=== PATIENT | female | born 1960 | race Caucasian/White ===

== ENCOUNTER 2025-03-28 06:00 | Day surgery (SDC) | payer BC, MEDICARE ==
[2025-03-27 11:00] VITALS: BMI 27.3
[2025-03-28] MEDS ORDERED: Ropivacaine 0.5% HCl/PF (150 MG/30 ML VIAL) ONE (06:58)
[2025-03-28] MEDS ORDERED: Lidocaine 1% (PF) 30 ML VIAL ONE (06:58)
[2025-03-28] MEDS ORDERED: Lidocaine 1% PF 5 ML VIAL ONE (07:11)
[2025-03-28] MEDS ORDERED: PROPOFOL 20 ML ONE (07:11)
[2025-03-28] MEDS ORDERED: CEFAZOLIN 2 GM VIAL ONE (07:17)
[2025-03-28] MEDS ORDERED: HYDROcodone/Acetaminophen 5/325 mg Tablet PO PRN ×2 (08:15)
[2025-03-28] MEDS ORDERED: Ondansetron PF 4 MG/2 ML Vial IVP PRN (08:15)
[2025-03-28] MEDS ORDERED: Ropivacaine 0.2% 550 ML 550 ML NERVE BLCK SCH (08:15)
[2025-03-28] MEDS ORDERED: Ondansetron PF 4 MG/2 ML Vial ONE (08:17)
[2025-03-28] MEDS ORDERED: fentaNYL PF 100 MCG/2 ML SYRINGE ONE (08:57)
== END 2025-03-28 11:54 | disposition home or self-care (01) ==
LOC: SDC 06:00
PROVIDERS: ATTEND Orthopaedic Surgery
PROC: 0QSG04Z Reposition Right Tibia with Internal Fixation Device, Open Approach (ICD-10-PCS; principal; 2025-03-28)
DX: S82.891A Other fracture of right lower leg, initial encounter for closed fracture (principal); S93.431A Sprain of tibiofibular ligament of right ankle, initial encounter; I10 Essential (primary) hypertension; E78.5 Hyperlipidemia, unspecified; Z88.0 Allergy status to penicillin; Z88.2 Allergy status to sulfonamides; Z88.8 Allergy status to other drugs, medicaments and biological substances; W10.8XXA Fall (on) (from) other stairs and steps, initial encounter; Z79.899 Other long term (current) drug therapy
CPT/HCPCS: 93005; 93010; A4306; C1713; J0169; J0665; J1100; J2250; J2270; J2405; J2704; J2795; J3010